=== PATIENT | female | born 1995 | race Two or more races ===

== ENCOUNTER 2017-04-27 19:43 | Emergency (ER) | payer SELFPAY ==
[~2017-04-27] VITALS: Ht 162.6 cm; Wt 79.5 kg
[~2017-04-27 19:43] MED LIST: FLUC150T17 PO; MCN2C15 TOP
[2017-04-27 19:45] VITALS: Ht 162.6 cm; Wt 79.5 kg
[2017-04-27] MEDS ORDERED: IBUP-1542 PO (19:56)
[2017-04-27] MEDS ORDERED: FIORICET PO (19:56)
--- NOTE | 2017-04-27 20:09 | ERD ---
ER Documentation Chief Complaint Date/Time DATE: 04/27/17 TIME: 20:02 Chief Complaint headache x 4 days HPI 21-year-old female presents to emergency department for complaints of headache for 4 days. Patient also has been having bodyaches and had a low-grade fever 2 days ago. Patient is complaining of headache and bodyaches throbbing pain, 4/10 scale. Patient also is complaining of light sensitivity and noise sensitivity. She denies any head injury. Patient denies any numbness or tingling. Patient denies any blurry vision. Patient took Tylenol for pain with mild relief. ROS All systems reviewed and are negative except as per history of present illness. Medications Home Meds Active Scripts Ibuprofen* (Motrin*) 600 Mg Tab, 600 MG PO Q6H Y for PAIN AND OR ELEVATED TEMP, #30 TAB Prov:TANIKA PETTY NP 04/27/17 Acetamin/Butalbital/Caffeine* (Fioricet*) [id number] Tab, 1 TAB PO Q6H Y for PAIN, #30 TAB Prov:TANIKA PETTY NP 04/27/17 Miconazole Nitrate* (Miconazole Nitrate*) 2% - 15 Gm Cr, 1 APPLIC TOP BID for 7 Days, TUB Prov:TERESA MARTIN PA-C 04/03/16 Fluconazole* (Diflucan*) 150 Mg Tablet, 150 MG PO ONCE, #12 TAB Prov:TERESA MARTIN PA-C 04/03/16 Allergies Allergies: Coded Allergies: [place] (Verified Allergy, Intermediate, rash, itching, sneezing, coughing , 11/08/14) Banana (Verified Allergy, Intermediate, rash, itching, sneezing, coughing , 11/08/14) Carrot (Verified Allergy, Intermediate, rash, itching, sneezing, coughing , 11/08/14) Hydromorphone (Verified Allergy, Intermediate, rash on face, itching , 11/08) bee venom (honey bee) (Verified Allergy, Intermediate, rash, itching, sneezing, coughing , 11/08/14) peanut (Verified Allergy, Intermediate, rash, itching, sneezing, coughing , 11/08/14) Uncoded Allergies: melons (Allergy, Intermediate, rash, itching, sneezing, coughing , 10/26/14 ) PMhx/Soc History of Surgery: No Anesthesia Reaction: No Hx Neurological Disorder: No Hx Respiratory Disorders: Yes (ASTHMA) Hx Cardiac Disorders: No Hx Psychiatric Problems: No Hx Miscellaneous Medical Probl: No Hx Alcohol Use: No Hx Substance Use: No Hx Tobacco Use: No FmHx Family History: No coronary disease, No diabetes, No other Physical Exam Vitals Vital Signs Date Time Temp Pulse Resp B/P Pulse Ox O2 Delivery O2 Flow Rate FiO2 04/27/17 19:45 99.7 100 20 130/84 100 Physical Exam GENERAL: The patient is well developed and appropriate for usual state of health, in no apparent distress. CHEST: Clear to auscultation bilaterally. There are no rales, wheezes or rhonchi. HEART: Regular rate and rhythm. No murmurs, clicks, rubs or gallops. No S3 or S4. ABDOMEN: Soft, nontender and nondistended. Good bowel sounds. No rebound or guarding. No gross peritonitis. No gross organomegaly or masses. No Fragoso sign or McBurney point tenderness. BACK: No midline or flank tenderness. EXTREMITIES: Equal pulses bilaterally. There is no peripheral clubbing, cyanosis or edema. No focal swelling or erythema. Full range of motion. Grossly neurovascularly intact. NEURO: Alert and oriented. Cranial nerves 2-12 intact. Motor strength in all 4 extremities with 5/5 strength. Sensation grossly intact. Normal speech and gait. Negative Romberg sign. Negative pronator drift. SKIN: There is no apparent rash or petechia. The skin is warm and dry. HEMATOLOGIC AND LYMPHATIC: There is no evidence of excessive bruising or lymphedema. No gross cervical, axillary, or inguinal lymphadenopathy. Procedures/MDM Medical Decision Making: Patient symptoms are consistent with migraine headache , possible tension headache. It can be also viral in origin. There is low suspicion for neurological emergencies at this time since patients neurologic exam is normal. Patient did not have any altered level consciousness, vomiting, changes in balance or memory and did not have any head injury. CT scan of the brain not indicated at this time. Rx: Fioricet ibuprofen, Zofran Dispostion: Home. Stable Departure Diagnosis: Primary Impression: Headache Headache type: unspecified Headache chronicity pattern: acute headache Intractability: not intractable Qualified Code: R51 - Acute nonintractable headache, unspecified headache type Condition: Stable Patient Instructions: Self-Care for Headaches Referrals: TATE SOLIS (PCP) TANIKA PETTY NP Apr 27, 2017 20:09
== END 2017-04-27 19:57 | disposition home or self-care (01) ==
LOC: FTE 19:43 → E/R 19:57
DX: R51 Headache (principal); J45.909 Unspecified asthma, uncomplicated; Z91.010 Allergy to peanuts
CPT/HCPCS: 99283

== ENCOUNTER 2019-05-06 18:04 | Emergency (ER) | payer OTHER ==
[~2019-05-06] VITALS: Ht 157.5 cm; Wt 86.8 kg
[~2019-05-06 18:04] MED LIST changes: +FIORICET PO; +FLUC150T PO; -FLUC150T17 PO; +IBUP-1542 PO
[2019-05-06 18:08] VITALS: BP 129/92; PULSE 113; RESP 16; Ht 157.5 cm; Wt 86.8 kg
[2019-05-06] MEDS ORDERED: predniSONE 20 MG TAB PO ONE (19:30)
[2019-05-06] MEDS ORDERED: LIDOCAINE 2% JELLY 5 ML TOP ONE (19:30)
[2019-05-06] MEDS ORDERED: BEN25 PO (20:03)
[2019-05-06] MEDS ORDERED: LIDO5CRE24 TP (20:03)
[2019-05-06] MEDS ORDERED: HYDR25CA PO (20:03)
[2019-05-06] MEDS ORDERED: PRED20TA PO (20:03)
--- NOTE | 2019-05-07 22:35 | ERD ---
ER Documentation Chief Complaint Chief Complaint bug bites to BLE since 05/04 getting worse, 'like needles' HPI This is a 23 yo female patient who presents to the ER with c/o multiple insect bites on her lower legs, likely mosquito. States this is common for her in the summer and usually is able to manage lesions with use of Benadryl and Calamine lotion. States she has been using bug repellant but still getting bites. She is using Benadryl and Calamine without relief. Denies other symptoms such as fever, malaise, abd pain, dysuria. +pruritis. No chronic medical problems. ROS All systems reviewed and are negative except as per history of present illness. Medications Home Meds Active Scripts Hydroxyzine Pamoate* (Vistaril*) 25 Mg Capsule, 25 MG PO QHS for itching for 5 Days, #10 CAP Prov:FELECIA YOON NP 05/06/19 Diphenhydramine Hcl* (Benadryl*) 25 Mg Cap, 25 MG PO Q6 PRN for ITCHING for 5 Days, #20 CAP Prov:FELECIA YOON NP 05/06/19 Prednisone* (Prednisone*) 20 Mg Tab, 20 MG PO DAILY for 4 Days, TAB Prov:FELECIA YOON NP 05/06/19 Lidocaine (Lidocaine) 5 Gm Cream..g., 5 GM TP BID for 5 Days, #28 GM Prov:FELECIA YOON NP 05/06/19 Ibuprofen* (Motrin*) 600 Mg Tab, 600 MG PO Q6H PRN for PAIN AND OR ELEVATED TEMP, #30 TAB Prov:TANIKA PETTY NP 04/27/17 Acetamin/Butalbital/Caffeine* (Fioricet*) [id number] Tab, 1 TAB PO Q6H PRN for PAIN, #30 TAB Prov:TANIKA PETTY NP 04/27/17 Miconazole Nitrate* (Miconazole Nitrate*) 2% - 15 Gm Cr, 1 APPLIC TOP BID for 7 Days, TUB Prov:TERESA MARTIN PA-C 04/03/16 Fluconazole* (Diflucan*) 150 Mg Tablet, 150 MG PO ONCE, #12 TAB Prov:TERESA MRATIN PA-C 04/03/16 Allergies Allergies: Coded Allergies: [place] (Verified Allergy, Intermediate, rash, itching, sneezing, coughing , 11/08/14) Banana (Verified Allergy, Intermediate, rash, itching, sneezing, coughing , 11/08/14) Carrot (Verified Allergy, Intermediate, rash, itching, sneezing, coughing , 11/08/14) Hydromorphone (Verified Allergy, Intermediate, rash on face, itching , 11/08/14) bee venom (honey bee) (Verified Allergy, Intermediate, rash, itching, sneezing, coughing , 11/08/14) peanut (Verified Allergy, Intermediate, rash, itching, sneezing, coughing , 11/08/14) Uncoded Allergies: melons (Allergy, Intermediate, rash, itching, sneezing, coughing , 10/26/14) PMhx/Soc Medical and Surgical Hx: pt denies Surgical Hx History of Surgery: No Anesthesia Reaction: No Hx Neurological Disorder: No Hx Respiratory Disorders: Yes (ASTHMA) Hx Cardiac Disorders: No Hx Psychiatric Problems: No Hx Miscellaneous Medical Probl: No Hx Alcohol Use: No Hx Substance Use: No Hx Tobacco Use: No Smoking Status: Never smoker FmHx Family History: No diabetes, No coronary disease, No other Physical Exam Vitals Vital Signs Date Temp Pulse Resp B/P (MAP) Pulse Ox O2 O2 Flow FiO2 Time Delivery Rate 05/06/19 98.0 113 16 129/92 100 18:08 (104) Physical Exam Const: No acute distress Head: Atraumatic Eyes: Normal Conjunctiva, PERRL ENT: Normal External Ears, Nose without drainge. Pharynx pink, moist, no lesions, no exudate. Neck: Full range of motion. No meningismus.No lympthadenopathy Resp: Clear to auscultation bilaterally Cardio: Regular rate and rhythm, no murmurs Abd: Soft, non tender, non distended. Normal bowel sounds Skin: Multiple small discrete raised red areas of erythema scattered on BLE, no swelling, no cellulitis, no excoriations Back: No midline or flank tenderness, no CVT Ext: No cyanosis, or edema Neur: Awake and alert Psych: Normal Mood and Affect Results 24 hrs Current Medications Medications Dose Sig/Jerome Start Time Status Last (Trade) Ordered Route PRN Stop Time Admin Dose Reason Admin Lidocaine 1 applic ONCE ONCE 05/06/19 DC 05/06/19 (Xylocaine TOP 19:30 05/06/19 19:20 2% Jelly) 19:31 Prednisone 20 mg ONCE ONCE 05/06/19 DC 05/06/19 (Prednisone) PO 19:30 05/06/19 19:20 19:31 Procedures/MDM PROCEDURES/MDM -Medications: Prednisone Lidocaine jelly used in ED and successfully reduced pain and pruritis of lesions MDM: This is a 23-year-old female patient presents emergency room with multiple mosquito bites to her lower extremities. States she was unable to resolve the pain and pruritus with the use of Benadryl and calamine per usual for her. Prednisone was initiated in the ER to reduce inflammatory response and topical lidocaine was used with good results to resolve itching and pain. Patient has been discharged with instructions to continue use of Benadryl or try Vistaril, prednisone, Caladryl, and topical lidocaine. Patient has been instructed on signs and symptoms of infection including redness, swelling, pain, fever. Low suspicion for cellulitis at this time as there are no signs or symptoms of infection and patient denies fever or malaise. Patient is being discharged with instructions on care of lesions, prevention of insect bites, and signs and symptoms to return for emergent medical treatment. Patient stable, alert, appropriate, ambulatory without difficulty at time of discharge. DISPOSITION and PLAN: RX: Vistril, Benadryl, prednisone, lidocaine The patient has been discharge home to follow-up with community physician. Departure Diagnosis: Primary Impression: Insect bites Encounter type: initial encounter Site of insect bite: lower leg Laterality: unspecified laterality Qualified Codes: S80.869A - Insect bite (nonvenomous), unspecified lower leg, initial encounter; W57.XXXA - Bitten or stung by nonvenomous insect and other nonvenomous arthropods, initial encounter Condition: Stable Patient Instructions: Allergic Reaction, Insect (General), Allergic Reaction, Insect (Local) Additional Instructions: Thank you very much for allowing us to participate in your care. Your health and safety is our top priority at [facility]. Call your primary care doctor TOMORROW for an appointment during the next 2-4 days and bring all the information and medications prescribed. Have prescriptions filled and follow precisely the directions on the label. If the symptoms get worse and your provider is unavailable, return to the Emergency Department immediately. FELECIA YOON NP May 07, 2019 22:34
== END 2019-05-06 20:11 | disposition home or self-care (01) ==
LOC: FTE 18:04
DX: S80.861A Insect bite (nonvenomous), right lower leg, initial encounter (principal); J45.909 Unspecified asthma, uncomplicated; S80.869A Insect bite (nonvenomous), unspecified lower leg, initial encounter; W57.XXXA Bitten or stung by nonvenomous insect and other nonvenomous arthropods, initial encounter; Y92.9 Unspecified place or not applicable; Z91.010 Allergy to peanuts
CPT/HCPCS: J7512; Z7502; Z7610; 99283

== ENCOUNTER 2019-07-11 00:01 | Emergency (ER) | payer OTHER ==
[~2019-07-11] VITALS: Ht 157.5 cm; Wt 85.9 kg
[~2019-07-11 00:01] MED LIST changes: +BEN25 PO; +HYDR-842 PO; +HYDR25CA PO; +LIDO35.415 TP; +LIDO5CRE24 TP; +PRED20TA PO
[2019-07-11 00:08] VITALS: Ht 157.5 cm; Wt 85.9 kg
[2019-07-11 03:08] VITALS: BP 120/77; PULSE 77; RESP 18
== END 2019-07-11 03:08 | disposition home or self-care (01) ==
LOC: FTE 00:01
DX: S80.861A Insect bite (nonvenomous), right lower leg, initial encounter (principal); L29.9 Pruritus, unspecified; J45.909 Unspecified asthma, uncomplicated; W57.XXXA Bitten or stung by nonvenomous insect and other nonvenomous arthropods, initial encounter; Y92.9 Unspecified place or not applicable; Z91.010 Allergy to peanuts
CPT/HCPCS: 99283